=== PATIENT | male | born 1980 | race Caucasian/White ===

== ENCOUNTER 2017-02-11 02:51 | Inpatient (IN) | payer SELFPAY ==
[~2017-02-11] VITALS: Ht 177.8 cm; Wt 74.8 kg
--- NOTE | 2017-02-11 03:20 | NUR ---
PT A/OX4 BREATHIGN EFFORTLESSLY ON ROOM AIR, PT C/O FEELING FREEZING WITH EXCESSIVE SWEATING AND BLURRED VISION X 3 HOURS, PT DENIES ANY DRUGS, PT ON MONITOR, IV PLACED , LAB AT BEDSIDE TO DRAW, COKE HANDLING SUPERVISOR AT BEDSIDE DOING EKG, MADE AWARE WILL CONTINUE TO MONITOR
[2017-02-11] MEDS ORDERED: diphenhydrAMINE HCL 50 MG/ML VIAL ONE (03:21)
[2017-02-11] MEDS ORDERED: DEXTROSE 50%-WATER 50 ML DISP.SYRIN ONE (03:24)
[2017-02-11] MEDS ORDERED: diphenhydrAMINE HCL 50 MG/ML VIAL IV ONE (03:30)
[2017-02-11] MEDS ORDERED: DEXTROSE 50%-WATER 50 ML DISP.SYRIN IVP ONE (03:30)
[2017-02-11] MEDS ORDERED: IV NS 0.9% 1,000 ML BAG IV ONE ×2 (03:30→05:00)
[2017-02-11] MEDS ORDERED: IV SET PRIMARY 1 EA INFUS.SET MC ONE ×2 (03:32→04:39)
[2017-02-11] MEDS ORDERED: IV NS 0.9% 1,000 ML ONE ×3 (03:32→07:38)
--- NOTE | 2017-02-11 04:03 | NUR ---
PT TO CT
[2017-02-11 04:12] LABS: BASOPHILS % (AUTO) 0.2 % (0.0-2.0); EOSINOPHILS % (AUTO) 0.6 % (0.0-6.0); HEMATOCRIT 53 % (39-51); HEMOGLOBIN 17.6 g/dL (13.5-17.5); LYMPHOCYTES # (AUTO) 1.5 /CMM (0.8-4.8); LYMPHOCYTES % (AUTO) 19.6 % (20.0-44.0); MEAN CORPUSCULAR HEMOGLOBIN 32 PG (26.0-33.0); MEAN CORPUSCULAR HGB CONC 33 g/dl (31.0-36.0); MEAN CORPUSCULAR VOLUME 96 fL (80-96); MONOCYTES # (AUTO) 0.3 /CMM (0.1-1.30); MONOCYTES % (AUTO) 3.4 % (2.0-12.0); NEUTROPHILS # (AUTO) 5.6 /CMM (1.8-8.9); NEUTROPHILS % (AUTO) 76.2 % (43.0-81.0); PLATELET COUNT (AUTO) 231 /CMM (150-450); RED BLOOD CELL COUNT(AUTO) 5.54 MIL/uL (4.5-6.0); WHITE BLOOD COUNT (AUTO) 7.4 K/uL (4.3-11.0)
[2017-02-11 04:25] LABS: INR 0.96 (0.87-1.13); PROTHROMBIN TIME 10.2 SECS (9.5-12.7)
[2017-02-11 04:27] LABS: APPEARANCE,URINE CLEAR (CLEAR); BILIRUBIN,URINE NEGATIVE (NEGATIVE); BLOOD, URINE NEGATIVE Ery/uL (NEGATIVE); COLOR,URINE YELLOW (YELLOW); KETONES,URINE NEGATIVE (NEGATIVE); LEUKOCYTE ESTERASE ,URINE NEGATIVE (NEGATIVE); NITRITE, URINE NEGATIVE (NEGATIVE); PROTEIN,URINE TRACE mg/dl (NEGATIVE); UGLUCOSE NEGATIVE (NEGATIVE); UROBILINOGEN,URINE 0.2 EU/dL (0.2)
[2017-02-11 04:33] LABS: TROPONIN I < 0.017 ng/mL (0.00-0.056)
[2017-02-11 04:36] LABS: ALANINE AMINOTRANSFERASE 70 U/L (12-78); ALBUMIN 4.6 g/dL (3.4-5.0); ALKALINE PHOSPHATASE 90 U/L (46-116); ASPARTATE AMINOTRANSFERASE 42 U/L (15-37); BILIRUBIN,DIRECT 0.1 mg/dL (0.0-0.2); BILIRUBIN,TOTAL 0.4 mg/dL (0.2-1.0); CALCIUM, SERUM 9.7 mg/dL (8.5-10.1); CARBON DIOXIDE 35 mmol/L (21-32); CHLORIDE 106 mmol/L (98-107); CREATININE 1.2 mg/dL (0.6-1.3); GLUCOSE 222 mg/dL (74-106); POTASSIUM 4.4 mmol/L (3.5-5.1); SODIUM SERUM 145 mmol/L (136-145); TOTAL PROTEIN, SERUM 8.3 g/dL (6.4-8.2); UREA NITROGEN, BLOOD 40 mg/dL (7-18)
--- NOTE | 2017-02-11 04:57 | NUR ---
PT RECTAL TEMP IS 96.2, MD ABARCA MADE AWARE AND WARM BLANKETS PUT ON PATIENT WILL CONTINUE TO MONITOR.
[2017-02-11 05:18] LABS: BACTERIA,URINE None seen /HPF (None Seen); MUCUS,URINE Few /LPF (None Seen); RBC,URINE NONE SEEN /HPF (0-2); SQUAMOUS EPITHELIAL CELL,UR Rare /HPF (None Seen); WBC,URINE 0-2 /HPF (0-3)
[2017-02-11 05:26] LABS: THYROID STIMULATING HORMONE 7.904 uIU/mL (0.358-3.74)
[2017-02-11 05:56] LABS: ACETAMINOPHEN 0 ug/ml (10-30); ALCOHOL, BLOOD < 3 mg/dL (0-0); SALICYLATE 1.7 mg/dL (2.8-20.0)
--- NOTE | 2017-02-11 06:10 | NUR ---
RN NOTES: RECEIVED CALL FROM ALIE RN FROM ER AND GOT REPORT. AWAITING ON PT TO ARRIVE TO UNIT.
[2017-02-11] MEDS ORDERED: IV NS 0.9% 1,000 ML IV PRN (06:41)
--- NOTE | 2017-02-11 06:50 | NUR ---
RN NOTES: RECEIVED PT IN [place] FROM ED. PT IS A/O X 4. NO SIGNS OR SYMPTOMS OF DISTRESS NOTED AT THIS TIME. TELE MONITOR WAS APPLIED. NEW GOWN WAS GIVEN. CALL LIGHT WITHIN PT'S REACH. BED KEPT IN LOCKED, LOWEST POSITION, AND SIDE RAILS X 2 UP. PT'S VITAL SIGNS ARE 124/64, HR 55, AND 98% PULSE OX. ENDORSED TO AM NURSE FOR MICHAELA.
[2017-02-11] MEDS ORDERED: MAG HYDROX/AL HYDROX/SIMETH 30 ML UDC PO PRN (07:00)
[2017-02-11] MEDS ORDERED: ZOLPIDEM TARTRATE 5 MG TABLET PO PRN (07:00)
[2017-02-11] MEDS ORDERED: ONDANSETRON HCL/PF 4 MG/2 ML VIAL IVP PRN (07:00)
[2017-02-11] MEDS ORDERED: HYDROCODONE/APAP 5/325MG 1 EACH TABLET PO PRN (07:00)
[2017-02-11] MEDS ORDERED: ACETAMINOPHEN 325 MG TABLET PO PRN (07:00)
[2017-02-11] MEDS ORDERED: Z GUARD REMEDY 2 OZ OINT TP PRN (07:00)
[2017-02-11] MEDS ORDERED: MAGNESIUM HYDROXIDE 30 ML UDC PO PRN (07:00)
--- NOTE | 2017-02-11 07:00 | NUR ---
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 Patient is alert and oriented x 4, verbally responsive and able to make needs known. No complaint of pain or discomfort noted. IV intact and patent. Dr. Valentin aware of the admission. Kept patient clean and comfortable in bed, call light with in patient reach, will continue to monitor accordingly. On tele monitor SB heart rate of 52.
[2017-02-11 07:09] VITALS: BP 124/68
[2017-02-11 07:12] VITALS: BP 124/68
[2017-02-11] MEDS ORDERED: PANTOPRAZOLE 40 MG TABLET.DR PO SCH (07:30)
[2017-02-11] MEDS ORDERED: IV SET PRIMARY PUMP SET 1 EA INFUS.SET MC ONE (07:38)
[2017-02-11 08:00] VITALS: BP 124/68
[2017-02-11] MEDS ORDERED: MECLIZINE HCL 12.5 MG TABLET PO PRN (12:30)
--- NOTE | 2017-02-11 13:00 | NUR ---
ms operations intern notes Dr. Dave came seen and examined the patient and ordered to discharge patient. discharge instructions given to patient and able to understand instructions. Patient is alert and oriented x 4, verbally responsive and able to make needs known. Signed discharge paper and belonging list. Discontinued IV and pressured applied. Health teaching rendered. Patient left in the hospital via ambulatory in stable condition accompanied by PATTERN LAYOUT WORKER assigned and girlfriend Hiral. No complaint of pain or discomfort, nor chest pain. Vital signs checked and recorded. MD and charge nurse aware.
== END 2017-02-11 13:10 | disposition home or self-care (01) | DRG 866 ==
LOC: ER 02:51 → TELE 06:09 → MED 09:09
PROVIDERS: ADMIT Internal Medicine; ATTEND Internal Medicine
DX: B34.9 Viral infection, unspecified (principal); E86.0 Dehydration; E03.9 Hypothyroidism, unspecified
CPT/HCPCS: 36415; 70450-TC; 71010-TC; 80048-TC; 80076-TC; 80305; 81000-TC; 82550-TC; 82962-TC; 83605-TC; 84439-TC; 84443-TC; 84481; 84484-TC; 85025-TC; 85730-TC; 87040-TC; 87081-TC; 87086-TC; 87400; A4606; G0480; J1200; J7030; Z7610